=== PATIENT | female | born 1995 | race Two or more races ===

== ENCOUNTER 2022-02-04 10:05 | Outpatient (REF) | payer BC, SELFPAY ==
--- NOTE | ~2022-02-04 | XR_ITS ---
EXAMINATION: XR CHEST CLINICAL INFORMATION: Nonspecific reaction to skin test without active tuberculosis. COMPARISON: None TECHNIQUE: 2 views of the chest were obtained. FINDINGS: Lungs are clear. There is no airspace consolidation, cavitary lesion, scarring, groundglass opacity, or effusion. The costophrenic sulci are clear. The heart is normal in size. The hilar and mediastinal contours and bony structures are unremarkable. There is a left nipple piercing present. XR/XR chest 2V IMPRESSION: Normal study.
== END 2022-02-04 10:06 | disposition home or self-care (01) ==
LOC: HO.XRAY 10:05
PROVIDERS: PCP Internal Medicine; Visit Provider Internal Medicine
DX: R76.11 Nonspecific reaction to tuberculin skin test without active tuberculosis (principal)
CPT/HCPCS: 71046

== ENCOUNTER 2023-03-09 09:03 | Outpatient (REF) | payer BC, SELFPAY ==
[2023-03-09 11:23] LABS: MANUAL DIFF FLAG NO
[2023-03-09 11:41] LABS: Basophils Percent Auto 0.7 % (0-2); Eosinophils Absolute Auto 0.5 X10*3/uL (0.0-0.4); Eosinophils Percent Auto 8.6 % (0-4); Hematocrit 41.8 % (37.0-47.0); Hemoglobin 14.2 g/dl (12.0-16.0); Imm Gran Abs Auto 0.01 X10*3/uL (0.00-0.03); Imm Gran Pct Auto 0.2 % (0.0-0.4); Lymphocytes Absolute Auto 1.8 X10*3/uL (1.2-4.9); Lymphocytes Percent Auto 31.4 % (20-40); Mean Corpuscular Hemoglobin 30.8 pg (27.0-33.0); Mean Corpuscular Volume 90.7 fL (80.0-98.0); Mean Platelet Volume 9.8 fL (9.4-12.3); Monocytes Absolute Auto 0.5 X10*3/uL (0.1-1.2); Neutrophils Absolute Auto 2.9 x10*3/uL (2.0-8.3); Neutrophils Percent Auto 51.1 % (45-73); Platelet Count 265 X10*3/uL (160-400); Red Blood Count 4.61 X10*6/uL (4.20-5.50); White Blood Count 5.6 X10*3/uL (4.8-10.8)
[2023-03-09 12:15] LABS: Alanine Aminotransferase 13 U/L (0-31); Albumin Level 4.3 g/dL (3.5-5.0); Alkaline Phosphatase 54 U/L (39-117); Anion Gap 10 (12-20); Aspartate Amino Transferase 20 U/L (5-31); Bilirubin Direct 0.2 mg/dL (0.0-0.5); Bilirubin Total 0.2 mg/dL (0.0-1.0); Blood Urea Nitrogen 14 mg/dL (9-16); Calcium 9.3 mg/dL (8.4-10.2); Carbon Dioxide 25 mmol/L (22-29); Chloride 106 mmol/L (96-108); Cholesterol 159 mg/dL (<200); Estimated Glomerular Filt Rate > 60; Glucose Random 79 mg/dL (60-115); HDL Cholesterol 48 mg/dL (>40); LDL Cholesterol Calculated 98 mg/dL (<100); Potassium 3.9 mmol/L (3.3-5.1); Sodium 137 mmol/L (135-145); Total Protein 6.8 g/dL (6.5-8.0); Triglycerides 69 mg/dL (<150)
[2023-03-09 12:18] LABS: TSH reflex Free T4 1.83 uIU/mL (0.32-4.0); Vitamin D 25-OH Total 62.8 ng/mL (>30)
[2023-03-09 12:25] LABS: Estimated Average Glucose 91 mg/dL; Hemoglobin A1c % 4.8 % (<6.0)
[2023-03-09 13:05] LABS: Rheumatoid Factor < 13.0 IU/mL (<15.0)
[2023-03-09 13:22] LABS: CT PCR NOT DETECTED (Not Detect.); NG PCR NOT DETECTED (Not Detect.)
[2023-03-10 04:27] LABS: HIV AB/AG Nonreactive (Nonreactive); HIV Num 1 0.06 S/CO (0.00-0.99); ~Hepatitis C Antibody Nonreactive (Nonreactive)
[2023-03-14 14:43] LABS: Anti Nuclear Antibody Screen NEGATIVE (NEGATIVE)
== END 2023-03-09 09:04 | disposition home or self-care (01) ==
LOC: HO.HHCL 09:03
PROVIDERS: Visit Provider Internal Medicine
DX: Z11.4 Encounter for screening for human immunodeficiency virus [HIV] (principal); N94.6 Dysmenorrhea, unspecified; N92.6 Irregular menstruation, unspecified; R53.82 Chronic fatigue, unspecified; M25.50 Pain in unspecified joint; Z20.2 Contact with and (suspected) exposure to infections with a predominantly sexual mode of transmission
CPT/HCPCS: 0353U; 80048; 80061; 80076; 82306; 83036; 84443; 85025; 86038; 86431; 86803; 87389

== ENCOUNTER 2023-04-04 10:54 | Outpatient (AMB) | payer BC, SELFPAY ==
--- NOTE | 2023-04-04 10:55 | MHC.OFFVIS ---
Intake Vital Signs 04/04/23 11:03 Height 5 ft Weight 136 lb BMI 26.6 BP 125/64 Blood Pressure Location Lt brachial Position Sitting Pulse 71 Intake Visit Reasons: EIC~ Rt inner thigh Intake Note: Patient here for cyst on Rt groin. Has hx of cysts on lower back and groin. Ptient reports cyst looks better now but would like to have it completely excised. Pouncer Required: No Accompanied by: Self / Same As Patient Allergies No Known Allergies Allergy (Verified 04/04/23 11:06) HPI HPI Comments History of Present Illness Details Patient presents 1. Pilonidal cyst of cleft symptoms 2. Sebaceous cyst symptoms of right upper inner thigh 1. She has not had pilonidal cyst symptoms for many years time. She occasionally has discomfort there but resolves within a few days. 2. Sebaceous cyst of upper inner thigh has been present for many years time. She gets occasional flare-ups every few months, and because of recurrence of symptoms, wishes to have it excised. Chart was reviewed patient evaluated [facility] Social History (Updated 04/04/23 @ 11:08 by AZAR Landin) Alcohol intake: current Alcohol intake frequency: holidays/special occasions only Patient Tobacco Use Status: Current someday Tobacco user Cigarettes Per Day: 5 Physical Exam Vital Signs: Last Vital Signs Pulse 71 04/04/23 11:03 BP 125/64 04/04/23 11:03 BMI result Body Mass Index 26.6 Chest Other: Chest sounds bilaterally, HS 1 in 2 GI Other: Abdomen soft, benign Back/Spine/Pelvis Other: Sinuses of cleft consistent with pilonidal cyst. No evidence of any infection or inflammation. Extrem Other: Sebaceous cyst of the upper inner thigh/perineum. Assessment & Plan Assessment & Plan (1) Pilonidal cyst: Code(s): L05.91 - Pilonidal cyst without abscess (2) Sebaceous cyst: Code(s): L72.3 - Sebaceous cyst Plan I discussed with the patient surgical therapeutic options for each lesion. She wishes to be treated conservatively for pilonidal cyst. Because of persistence of symptoms, she wishes to have the upper inner thigh/perineal cyst excised. Risks, benefits, alternatives of excision of this cyst reviewed with the patient included but not limited to bleeding, infection, recurrence, numbness, pain, scarring, wound dehiscence, seroma and the patient wishes to proceed. All questions were answered. Arrangements will be made for this. She has some and sure incision use which will be directed to our staff Coding Level of Care Code New Pt Level 5 (60721) Diagnoses Pilonidal cyst L05.91 Sebaceous cyst L72.3
[2023-04-04 11:03] VITALS: BP 125/64; PULSE 71; BMI 26.6
== END 2023-04-04 11:18 | disposition home or self-care (01) ==
PROVIDERS: PCP Internal Medicine; Referring Provider Internal Medicine; Visit Provider Surgery
DX: L05.91 Pilonidal cyst without abscess (principal); L72.3 Sebaceous cyst
CPT/HCPCS: 99204

== ENCOUNTER → 2023-04-04 10:54 | Outpatient (BNVA) | payer BC, SELFPAY | PROVIDERS: PCP Internal Medicine; Referring Provider Internal Medicine; Visit Provider Surgery ==

== ENCOUNTER 2023-04-28 08:31 | Day surgery (SDC) | payer BC, SELFPAY ==
--- NOTE | 2023-04-26 13:12 | MHC.SHP ---
Pre-Procedural Eval Section A Date of Service: 04/26/23 The patient is an INPATIENT: No Changes since office visit: No Cold of Flu in the past 2 weeks, No New Medical Problems, No Changes in Medication and No Patient answered all questions The History & Physical has been completed within 30 days and I have reviewed it.: Yes Section B Chief Complaint: Pilonidal cyst without abscess,Sebaceous cyst Allergies: Allergies Allergy/AdvReac Type Severity Reaction Status Date / Time No Known Allergies Allergy Verified 04/04/23 11:06 Plan I have reviewed the history and physical and performed a pertinent physical examination on my patient. No changes have occurred unless specified. Time Spent With Patient Time: Total time managing care of this patient today ____ minutes.
--- NOTE | 2023-04-27 11:51 | HO.ANESPROP2 ---
Documented by User: Fransisca Melissa NP 04/27/23 11:52 HPI - Anesthesia Eval Consult details Narrative: 27yo F for Right Wide Local Excisional Cyst Perineal mass PMFSH Active Problems Active Problems: All Active Problems (Updated 04/04/23 @ 11:21 by Barry Trotter MD) Sebaceous cyst (Acute) Pilonidal cyst (Acute) Past Medical History Medical History ADHD Smoker Depression with anxiety Surgical History Surgical History No pertinent past surgical history Social History Social History Alcohol intake: current Alcohol intake frequency: holidays/special occasions only Patient Tobacco Use Status: Current someday Tobacco user Cigarettes Per Day: 5 Advance Directives: No Advance Directives Information Provided: Yes Meds Allergies Allergy/AdvReac Type Severity Reaction Status Date / Time No Known Allergies Allergy Verified 04/28/23 08:50 Home Medications Medication Instructions Recorded Confirmed Last Taken Type bupropion HCl 100 mg tablet 100 mg PO BID 04/04/23 04/28/23 Unknown History hydroxyzine HCl 25 mg tablet 25 mg PO BID PRN ADHD 04/04/23 04/28/23 Unknown History methylphenidate HCl 36 mg 36 mg PO DAILY 04/04/23 04/28/23 Unknown History tablet,extended release 24 hr Exam Exam Date and Time: April 27, 2023 1151 Pertinent Lab Results Pertinent Lab Results: Laboratory Tests 03/09/23 09:12 WBC 5.6 Hgb 14.2 Hct 41.8 Plt Count 265 Sodium 137 Potassium 3.9 Chloride 106 Carbon Dioxide 25 BUN 14 Creatinine 0.80 Assessment and Plan Assessment Anesthesia Assessment: Chart Reviewed Documented by User: Susan Piedra MD 04/28/23 09:31 PMFSH Past Medical History Medical History ADHD Smoker Depression with anxiety Functional capacity: bed bound Surgical History Surgical History No pertinent past surgical history History of Problems with Anesthesia: No Social History Social History Alcohol intake: current Alcohol intake frequency: holidays/special occasions only Patient Tobacco Use Status: Current someday Tobacco user Cigarettes Per Day: 5 Advance Directives: No Advance Directives Information Provided: Yes Meds Allergies Allergy/AdvReac Type Severity Reaction Status Date / Time No Known Allergies Allergy Verified 04/28/23 08:50 Home Medications Medication Instructions Recorded Confirmed Last Taken Type bupropion HCl 100 mg tablet 100 mg PO BID 04/04/23 04/28/23 Unknown History hydroxyzine HCl 25 mg tablet 25 mg PO BID PRN ADHD 04/04/23 04/28/23 Unknown History methylphenidate HCl 36 mg 36 mg PO DAILY 04/04/23 04/28/23 Unknown History tablet,extended release 24 hr Exam Airway Mallampati Class: I TM Dist: >3cm Neck ROM: Full Loose/Missing/Broken Teeth: No Heart: RRR Lungs: CTA Assessment and Plan Assessment Anesthesia Assessment: Anesthesia Plan Discussed Final Anesthetic Review History of Problems with Anesthesia: No NPO: Yes ASA Class: II Final Preanesthetic Review: Meds/Allgs Chart Reviewed, Consent Obtained/Reviewed and Anes Risks/Benef Reviewed Patient Risk: Low Procedure Risk: Low Anesthetic Plan Anesthetic Plan: GA Disposition: Standard PACU
--- NOTE | 2023-04-28 07:33 | MHC.SHP ---
Pre-Procedural Eval Section A Date of Service: 04/28/23 The patient is an INPATIENT: No Changes since office visit: No Cold of Flu in the past 2 weeks, No New Medical Problems, No Changes in Medication and No Patient answered all questions The History & Physical has been completed within 30 days and I have reviewed it.: Yes Section B Chief Complaint: Pilonidal cyst without abscess,Sebaceous cyst Allergies: Allergies Allergy/AdvReac Type Severity Reaction Status Date / Time No Known Allergies Allergy Verified 04/04/23 11:06 Plan I have reviewed the history and physical and performed a pertinent physical examination on my patient. No changes have occurred unless specified. Time Spent With Patient Time: Total time managing care of this patient today ____ minutes.
[2023-04-28 08:51] VITALS: BP 122/71; PULSE 71; RESP 16; TEMP 36.8; O2SAT 100; BMI 27.9
[2023-04-28 09:02] LABS: UPreg QC Valid YES; Urine Pregnancy NEGATIVE (NEGATIVE)
[2023-04-28] MEDS: Lactated Ringers 1,000 ML 100 ML IVCONT (09:15)
[2023-04-28 11:08] VITALS: BP 133/78; PULSE 87; RESP 16; TEMP 36.1; O2SAT 100
--- NOTE | 2023-04-28 11:08 | W.PM.OPN ---
Operative Note Operative Note Date of Service: 04/28/23 Narrative: Preoperative diagnosis: [] Recurrent right perineal cyst Postop diagnosis: [] Same Procedure [] wide local excision right perineal cyst Surgeon: [] [employer] Social Worker: [] Type of Anesthesia: [] LMA Indication for surgery: [] Approximately 5 x 4 cm right perineal mass consistent with a recurrent sebaceous cyst Findings: [] Patient brought to the operating room, placed on operative table in supine position, after adequate level of anesthesia was induced, patient was placed in lithotomy position. Right perineal area was prepped and draped in usual sterile fashion. Using a longitudinal bi- elliptical incision around the lesion in question with dimensions as described above, this carried down through skin, subcutaneous tissue, undermined using Bovie. Specimen sent to pathology. Wound was irrigated, secured hemostasis, and closed using interrupted inverted dermal 3-0 Vicryl sutures followed by Steri-Strips and sterile dressings. Wound was infiltrated 0.5% Marcaine/1% lidocaine. Sponge, needle, and instrument counts reported to be correct. Patient tolerated the procedure well and emerged anesthesia stable condition. EBL minimal
[2023-04-28 11:13] VITALS: BP 118/40; PULSE 91; RESP 16; O2SAT 100
[2023-04-28 11:18] VITALS: BP 124/71; PULSE 68; RESP 16; O2SAT 100
[2023-04-28 11:23] VITALS: BP 138/85; PULSE 93; RESP 16; TEMP 36.1; O2SAT 100
[2023-04-28 11:38] VITALS: BP 114/69; PULSE 75; RESP 16; TEMP 36.4; O2SAT 100
== END 2023-04-28 12:14 | disposition home or self-care (01) ==
PROVIDERS: Nurse Practitioner; PCP Internal Medicine; Visit Provider Surgery
PROC: (CPT 11406; principal; 2023-04-28 10:00)
DX: L72.3 Sebaceous cyst (principal); F41.8 Other specified anxiety disorders; F90.9 Attention-deficit hyperactivity disorder, unspecified type; F17.210 Nicotine dependence, cigarettes, uncomplicated; Z79.899 Other long term (current) drug therapy
CPT/HCPCS: 11406; 81025; 88304; 88305; J0690; J1100; J1170; J2250; J2405; J2704

== ENCOUNTER → 2023-04-28 08:31 | Outpatient (BNV) | payer BC, SELFPAY | PROVIDERS: PCP Internal Medicine; Visit Provider Surgery | DX: L72.0 Epidermal cyst (principal) | CPT/HCPCS: 11423 ==

== ENCOUNTER 2023-05-09 09:59 | Outpatient (AMB) | payer BC, SELFPAY ==
--- NOTE | 2023-05-09 10:08 | MHC.OFFVIS ---
Intake Vital Signs 05/09/23 10:09 Weight 137 lb BP 133/67 Blood Pressure Location Rt brachial Position Sitting Pulse 73 Intake Visit Reasons: S/P exc. Lt perineal mass Intake Note: Patient here s/p exc Lt perineal mass on 04-28-23. Reports incision healing well. Denies pain, oozing, itch. C/o nausea after surgery but getting better today. Head Host/Hostess Required: No Allergies No Known Allergies Allergy (Verified 05/09/23 10:10) HPI HPI Comments History of Present Illness Details Patient has no wound issues or complaints. Pathology is benign. PFSH Medical History ADHD Smoker Depression with anxiety Surgical History No pertinent past surgical history Alcohol intake: current Alcohol intake frequency: a few times a month Patient Tobacco Use Status: Current everyday Tobacco user Tobacco use type: Cigarette Cigarettes Per Day: 4 Years Smoked: 7 Physical Exam Vital Signs: Last Vital Signs Pulse 73 05/09/23 10:09 BP 133/67 05/09/23 10:09 Skin Other: Perineal wound healing very well. Assessment & Plan Assessment & Plan (1) Sebaceous cyst: Code(s): L72.3 - Sebaceous cyst Plan Patient has been given very specific local instructions including avoiding strenuous activities for next 2 weeks time. She will follow up p.r.n.. All questions were answered. Coding Level of Care Code Global (21604) Diagnoses Sebaceous cyst L72.3
[2023-05-09 10:09] VITALS: BP 133/67; PULSE 73
== END 2023-05-09 10:23 | disposition home or self-care (01) ==
PROVIDERS: PCP Internal Medicine; Visit Provider Surgery
DX: L72.3 Sebaceous cyst (principal)
CPT/HCPCS: 99024

== ENCOUNTER → 2023-05-09 09:59 | Outpatient (BNVA) | payer BC, SELFPAY | PROVIDERS: PCP Internal Medicine; Visit Provider Surgery ==

== ENCOUNTER 2023-06-20 10:58 | Outpatient (REF) | payer BC, SELFPAY ==
--- NOTE | ~2023-06-20 | XR_ITS ---
EXAMINATION: XR CHEST CLINICAL INFORMATION: Positive QuantiFeron test. COMPARISON: 02/04/2022 TECHNIQUE: 2 views of the chest were obtained. FINDINGS: The lung volumes are low. There is no gross pneumothorax. Heart size is normal. No gross pleural effusion. No new focal consolidation to suggest pneumonia. XR/XR chest 2V IMPRESSION: Low lung volumes. No evidence of pneumonia.
[2023-06-22 08:58] LABS: RPR Rapid Plasma Reagin NON-REACTIVE (NON-REACTIVE)
== END 2023-06-20 10:59 | disposition home or self-care (01) ==
LOC: HO.XRAY 10:58
PROVIDERS: PCP Internal Medicine; Visit Provider Internal Medicine
DX: R76.11 Nonspecific reaction to tuberculin skin test without active tuberculosis (principal); Z00.00 Encounter for general adult medical examination without abnormal findings
CPT/HCPCS: 36415; 71046; 86592

== ENCOUNTER 2025-02-25 13:39 | Outpatient (REF) | payer OTHER, SELFPAY ==
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
--- OUTSIDE RECORDS SUMMARY | 2025-02-25 18:54 | XMS_ITS | Encounter Summary ---
Author Organization [facility] Address [address] [place] [address] Care Team Providers Care Scissors Sharpener Name Role Phone Kiesha Mays MD Primary Care Provide r Encounter Details Date Type Department Care Team (Latest Contact Info) Description 02/24/2025 Travel Social History Tobacco Use Types Packs/Day Years Used Date Smoking Tobacco: Every Day Cigarettes 0.3 6 Depression Answer Date Recorded Patient Health Questionnaire-9 Score 2 02/25/2025 Patient Health Questionnaire-9 Score 2 02/25/2025 Last PHQ-9: Questionnaire Data Not on file 0 02/25/2025 Housing Stability Answer Date Recorded What is your housing situation today? I have mia rajesh 02/25/[address] you li [...] AM EDT documented as of this encounter Plan of Treatment Not on file documented as of this encounter Visit Diagnoses Not on filedocumented in this encounter Additional Health Concerns Assessment Noted Time PHQ-9 Depression Total Score: 0 03/08/20 23 2:07 PM EDT documented as of this encounter Care Teams Scissors Sharpener Relationship Specialty Start Date End Date Kiesha Mays MD [address] [place] [address] PCP - General Family Medicine 07/27/19 documented as of this encounter
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
--- OUTSIDE RECORDS SUMMARY | 2025-02-25 18:54 | XMS_ITS | Encounter Summary ---
Author Organization [employer] Address [address] [facility] 7t [place] [address] Care Team Providers Care Sales Lead Name Role Phone Kiesha Mays MD Primary Care Provide r Encounter Details Date Type Department Care Team (Latest Contact Info) Description 02/25/2025 Travel Social History Tobacco Use Types Packs/Day [...] AM EDT documented as of this encounter Functional Status * Over the [...] 10:16 AM EDT Ozzy Wallace MA * Poor appetite or overeating Answer Date of Assessment Author Not at all 02/25/2025 10:16 AM BRENNENT Ozzy Wallace MA * Feeling bad about yourself - or that you are a failure or have let yourself or your family down Answer Date of Assessment Author Not at all 02/25/2025 10:16 AM EDT Ozzy Wallace MA * Trouble concentrating on things, such [...] 02/25/2025 10:16 AM Ozzy Grayson MA * Thoughts that you would be better off or hurting yourself in some way Answer Date of Assessment Author Not at all 02/25/2025 10:16 AM BRENNENT Ozzy Wallace MA * Patient Health Questionnaire-9 Score Answer Date of Assessment Author 2 02/25/2025 10:16 AM BRENNENT Ozzy Wallace MA * How difficult have these problems made it for you to do your work, take care of things at home, or get along with other people? Answer Date of Assessment Author Not difficult at all 02/25/2025 10:16 AM EDT Molly Kim MA * Over the last 2 weeks, how often have you been bothered by any of the following problems? Question Answer Date of Assessment Author Feeling nervous, anxious, or on edge 1 02/11 10:15 AM EDT Molly Wallace MA Not being able to stop or co ntrol worrying 1 02/25/2025 10:15 AM EDT Molly Wallace MA Worrying too much about diff erent things 1 02/25/2025 10:15 AM EDT Molly Wallace MA Trouble relaxing 0 02/25/2025 10:15 AM BRENNENT Molly Wallace MA Being so restless that it is hard to sit still 0 02/25/2025 10:15 AM BRENNENT Molly Wallace MA Becoming easily annoyed or irritable 1 02/11 10:15 AM BRENNENT Molly Wallace MA Feeling afraid as if somethi ng awful might happen 0 02/25/2025 10:15 AM EDT Molly Wallace MA ISAAC-7 Total Score 4 02/25/2025 10:15 AM Molly Grayson MA documented as of this encounter Plan of Treatment Not on file documented as of this encounter Visit Diagnoses Not on filedocumented in this encounter Additional Health Concerns Assessment Noted Time PHQ-9 Depression Total Score: 2 02/26/20 25 10:16 AM EDT documented as of this encounter Care Teams Sales Lead Relationship Specialty Start Date End Date Kiesha Mays MD [address] [place] [phone] PCP - General Family Medicine 07/27/19 documented as of this encounter
--- OUTSIDE RECORDS SUMMARY | 2025-02-25 18:54 | XMS_ITS | Encounter Summary ---
Author Organization [employer] Address [address] [facility] 7t [place] [address] Care Team Providers Care Vice President Of Advertising Name Role Phone Kiesha Mays MD Primary Care Provide r Reason for Visit * Reason Onset Date Comments Chart Prep 02/22/2025 Encounter Details Date Type Department Care Team ([facility] st Contact Info) Description 02/22/2025 Telephone [facility] [address] [place], [place] [phone] Kiesha Mays MD [address] [place] [address] Chart Prep Social History Tobacco Use Types Packs/Day Years Used Date Smoking Tobacco: Every Day Cigarettes 0.3 6 Depression Answer Date Recorded Patient Health Questionnaire-9 Score 0 03/08/2023 Housing Stability Answer Date Recorded What is your housing situation today? I have mia mena 03/28/[address] you li ve. Do you have problems with any of the following? None of the above 03/28/2023 Food Insecurity Answer Date Recorded Within the past 12 months, y ou worried that your food would run out before you got money to buy more: Never True 03/28/2023 Within the past 12 months,th e food you bought just didn't last and you didn't have enough money to get more: Never True Transportation Answer Date Recorded In the past 12 months, has l ack of transportation kept you from medical appts, meetings, work or from getting things needed for daily living? No 03/28/2023 Utilities Answer Date Recorded In the past 12 months, has t he electric, gas, oil or water company threatened to shut off services in your home? No 03/28/2023 Depression Answer Date Recorded Patient Health Questionnaire-2 Score 0 03/08/2023 Comments Unknown Sex and Gender Information Value Date Recorded Sex Assigned at Female 04/12/2022 10:36 AM EDT Legal Sex Female 10:36 AM EDT Gender Identity Female 04/12/2022 10:36 AM EDT Sexual Orientation Choose not to disclose 2021 10:36 AM EDT documented as of this encounter Miscellaneous Notes * Telephone Encounter - Kathy Lambert MA - 02/22/2025 2:42 PM EDT Chart Prep Labs: not done Images: not applicable Referrals: not applicable Vaccines due: Covid, Flu, PCV20, Tdap, Hep B, and HPV Screenings: LMP Overdue care gaps: SDOH, PHQ-9, ISAAC-7, and Disability screen documented in this encounter Plan of Treatment Not on file documented as of this encounter Visit Diagnoses Not on filedocumented in this encounter Additional Health Concerns Assessment Noted Time PHQ-9 Depression Total Score: 0 03/08/20 23 2:07 PM EDT documented as of this encounter Care Teams Vice President Of Advertising Relationship Specialty Start Date End Date Kiesha Mays MD [address] [place] [address] PCP - General Family Medicine 07/27/19 documented as of this encounter
--- OUTSIDE RECORDS SUMMARY | 2025-02-25 18:54 | XMS_ITS | Clinical Summary ---
Author Organization [facility] Address [address] [place] [phone] Phone Care Team Providers Care Bandsaw Operator Name Role Phone Kiesha Mays MD Primary Care Provider Allergies No known active allergies Medications buPROPion (WELLBUTRIN XL) 150 MG ER 24 hr tablet Take 150 mg by mouth every morning. 2023 Active methylphenidate HCl 36 MG ER tablet Take by mouth every morning. 09/05/2023 Active rifAMPin (RIFADIN) 300 MG capsule Take 300 mg by mouth 2 (two) times a day. 09/19/2023 Active hydrOXYzine (VISTARIL) 25 MG capsule Take 25 mg by mouth daily. Active Active Problems Problem Noted Date Diagnosed Date Abscess, vulva 10/12/2023 Overview (10/12/2023): H/o 2 abscesses that required surgical drainage in past- one near tailbone, other right perineum/glute May be due to hidrandenitis Assessment & Plan (10/12/2023 4:38 PM EDT): Uncertain if due to underlying hidradenitis, discussed that diagnosis. There is scarring typical of hidradenitis is not present, and one of the 2 abscesses that needed to be drained were not location although it is consistent with this diagnosis. If possible, returnWith any new early lesion. 1 option is to use the topical clindamycin once daily as a prevention; we reviewed some other treatment options that are not up-to-date, interestingly one of them is to combine rifampin with oral clindamycin for severe cases. Dysmenorrhea 10/12/2023 Overview (10/12/2023): Severe, lasting 1 day of each menses Assessment & Plan (10/12/2023 4:39 PM EDT): At this time, declined treatment with oral contraceptives levonorgestrel IUD etc. Can try starting a nonsteroidal anti-inflammatory a day or 2 before onset of menses as that is usually more effective than starting at the first day Encounters Date Type Department Care Team Description 12/13/2024 Transcribe Orders [facility] [address] [place] [address] [place] [address] Karyn Rogers Encounter for rehabilitation (Primary Dx) from Last 3 Months Family History Medical History Relation Comments No Known Problems Brother Heart attack Father No Known Problems Mother Relation Status Comments Brother Alive Father Alive Mother Alive Social History Tobacco Use Types Packs/Day Years Used Date Smoking Tobacco: Every Day Cigarettes Smokeless Tobacco: Never Alcohol Use Standard Drinks/Week Comments Yes 0 (1 standard drink = 0.6 oz pur e alcohol) Education Answer Date Recorded Are you interested in more education? Not on rashel e 10/10/2023 Are you concerned about learning? Not on file 10/10/2023 No 10/10/2023 No 10/10/2023 Digital Access Answer Date Recorded No 10/10/2023 No 10/10/2023 Reliable internet access at home? Not on file 10/10/2023 Device with a working camera? Not on file Intimate Partner Violence Answer Date R ecorded Are you denied basic needs s uch as food, clothing, or medical care? No 11/07/2023 In the past 12 months have y ou been in a relationship with a person who hurts, threatens, or tries to control you? No 11/07/2023 Are you denied basic needs s uch as food, clothing, or medical care? No 11/07/2023 In the past 12 months have y ou been in a relationship with a person who hurts, threatens, or tries to control you? No 11/07/2023 Comments No Sex and Gender Information Value Date Recorded Sex Assigned at Not on file Legal Sex Female 11:54 AM EDT Gender Identity Not on file Sexual Orientation Not on file Last Filed Vital Signs Vital Sign Reading Time Taken Comments Blood Pressure 102/70 11/07/2023 11:42 AM EDT Pulse 60 11/07/2023 11:42 AM EDT Temperature 36.1 C (97 F) 11/07/2023 11:42 AM EDT Respiratory Rate 16 11/07/2023 11:42 AM EDT Oxygen Saturation 99% 11/07/2023 11:42 AM EDT Inhaled Oxygen Concentration - - Weight 62.6 kg (138 lb) 11/07/2023 10:22 AM EDT Height 152.4 cm (5') 11/07/2023 10:22 AM EDT Body Mass Index 26.95 11/07/2023 10:22 AM EDT Plan of Treatment Health Maintenance Due Date Last Done Comments Adult Td,Tdap Booster 1997 DEPRESSION SCREENING 2009 SMOKING Hx and SMOKELESS TOBACCO SCREENING 2010 HEPATITIS C SCREENING 09/13/2015 HIV ONE-TIME SCREENING (18-6 5 YEARS) 09/13/2015 PNEUMOCOCCAL VACCINES (0-49 years) (1 of 2 - PCV) 2016 INFLUENZA VACCINE (#1) 2025 COVID-19 VACCINE (1 - 2023-2 5 season) 2025 PAP SMEAR 03/15/2025 03/15/2022, 03/15/2022 HEPATITIS A VACCINES Aged Out No long er eligible based on patient's age to complete this topic HIB VACCINES Aged Out No longer eligi ble based on patient's age to complete this topic MENINGOCOCCAL VACCINES (ACWY) Aged Out No longer eligible based on patient's age to complete this topic MENINGOCOCCAL VACCINES (B) Aged Out N o longer eligible based on patient's age to complete this topic Medical Devices Not on file Procedures Procedure Name Priority Date/Time Associated Diagnosis Comments PAP TEST Routine 03/15/2022 9:52 AM EDT from Last 3 Months or Most Recently Relevant to Health Maintenance Results * Pap Test (03/15/2022 9:52 AM EDT) us Unknown Pcp CYTOLOGY ORDERABLES Final Result from Last 3 Months or Most Recently Relevant to Health Maintenance Insurance PPO EPO PPO EPO PPO EPO PPO EPO PPO EPO PPO EPO Care Teams Bandsaw Operator Relationship Specialty Start Date End Date Kiesha Mays MD [address] [place] [phone] PCP - General Internal Medicine 10/11/23 Additional Source Comments The information contained in this document represents components of the legal health record. It is not the complete legal health record.[facility]
== END 2025-02-25 13:40 | disposition home or self-care (01) ==
LOC: HO.HHCLNP 13:39
PROVIDERS: Visit Provider Internal Medicine
DX: Z12.4 Encounter for screening for malignant neoplasm of cervix (principal)
CPT/HCPCS: 87626; 88175